=== PATIENT | female | born 1975 | race Caucasian/White ===

== ENCOUNTER 2024-01-07 00:13 | Emergency (ER) | payer OTHER ==
[~2024-01-07] VITALS: Ht 152.4 cm; Wt 86.2 kg
[2024-01-07 00:48] VITALS: BP_SYST 130; PULSE 76; RESP 18; TEMP 98.1; O2SAT 100
[2024-01-07] MEDS ORDERED: LIDO1ADH22 TP (02:01)
[2024-01-07] MEDS: CYCLOBENZAPRINE HCL 10 MG TABLET (FLEXERIL) PO ONE (02:06)
[2024-01-07] MEDS: KETOROLAC TROMETHAMINE 30 MG VIAL IM ONE (02:11)
[2024-01-07] MEDS ORDERED: LIDOCAINE PATCH 5% 1 EA TP ONE (02:38)
[2024-01-07] MEDS: LIDOCAINE PATCH 5% 1 EA TP ONE (02:40)
[2024-01-07 02:49] VITALS: BP_SYST 130; PULSE 76; RESP 18; TEMP 98.1; O2SAT 100
== END 2024-01-07 02:49 | disposition home or self-care (01) ==
LOC: SED 00:13
DX: S16.1XXA Strain of muscle, fascia and tendon at neck level, initial encounter (principal); K08.89 Other specified disorders of teeth and supporting structures; R03.0 Elevated blood-pressure reading, without diagnosis of hypertension; V89.2XXA Person injured in unspecified motor-vehicle accident, traffic, initial encounter; Y93.89 Activity, other specified; Y92.89 Other specified places as the place of occurrence of the external cause; Y99.8 Other external cause status
CPT/HCPCS: 99283; 96372; J1885